=== PATIENT | male | born 1980 | race Two or more races ===

== ENCOUNTER 2016-09-14 14:01 | Emergency (ER) | payer OTHER ==
[2016-09-14 14:07] VITALS: BP 145/78; PULSE 65; TEMP 97.8; BMI 31.6
--- NOTE | 2016-09-14 15:27 | PDOC ---
History of Present Illness - General Chief Complaint: Laceration Stated Complaint: INJURY Time Seen by Provider: 09/14/16 14:15 - History of Present Illness Initial Comments: 09/14/16 14:17 Pt. is a LL hand dominant 36 y/o male who presents to fast track c/o cutting his left 4th finger. Pt. states he was trying to open a zip tie with a knife outside when his children threw a ball and it hit his hand. He slipped with the knife and cut his finger. He was able to control the bleeding and come to the ER. Denies weakness, numbness or tingling, or pain with bending his knuckle. States his tetanus is UTD and that he received it "a few months ago". Past History - Past Medical History Allergies/Adverse Reactions: Allergies Allergy/AdvReac Type Severity Reaction Status Date / Time No Known Allergies Allergy Verified 09/14/16 14:05 Home Medications: Ambulatory Orders NK [No Known Home Medication] 11/12/15 HTN: Yes - Surgical History Abdominal Surgery: Yes (gastric sleeve) - Immunization History Immunization Up to Date: Yes - Psycho/Social/Smoking Cessation Hx Anxiety: No Suicidal Ideation: No Smoking History: Never smoked Have you smoked in the past 12 months: No Information on smoking cessation initiated: No Hx Alcohol Use: No Drug/Substance Use Hx: No Review of Systems - Review of Systems Constitutional: No: Chills, Fever, Weakness Musculoskeletal: No: Joint Pain, Joint Swelling, Muscle Pain Integumentary: Yes: Other (laceration to L 4th proximal finger) Hematologic/Lymphatic: No: Easy Bleeding *Physical Exam - Vital Signs Last Vital Signs Temp Pulse Resp BP Pulse Ox 97.8 F 65 18 145/78 100 09/14/16 14:05 09/14/16 14:05 09/14/16 14:05 09/14/16 14:05 09/14/16 14:05 - Physical Exam General Appearance: Yes: Nourished, Appropriately Dressed. No: Apparent Distress Extremity: positive: Normal Capillary Refill, Normal Range of Motion (Strength 5 /5 with FROM in L 4th finger). negative: Normal Inspection (2.5cm laceration to the L 4th proximal finger) Integumentary: positive: Normal Color, Dry, Warm, Other (2.5cm laceration to the L 4th proximal finger) Neurologic: positive: email operations manager II-XII NML intact, Fully Oriented, Alert, Normal Mood/ Affect, Normal Response, Motor Strength 5/5 Procedures - Laceration/Wound Repair Left Proximal Finger 4th digit Wound Length: to 2.5 cm (2.5cm in length) Wound Explored: clean, no foreign body present Wound's Depth, Shape: superficial, linear Irrigated w/ Saline: Yes Betadine Prep: Yes Anesthesia: 1% Lidocaine Amount of Anesthetic (ccs): 2 Wound Repaired With: Sutures Suture Size/Type: 5:0, nylon Number of Sutures: 3 (simple interrupted) Layer Closure: No Sterile Dressing Applied: Yes Splint Applied: Yes Type of Splint Applied: finger splint Medical Decision Making - Medical Decision Making 09/14/16 15:29 The wound was thoroughly explored and irrigated with saline and betadine. 3 simple interrupted sutures were placed under 2ccs of 1% lidocaine. Pt. tolerated procedure well. Bleeding controlled at this time. Finger was placed in a splint to keep the stitches in place. There is also a small wound on his ventral 5th finger. This wound was also cleaned and a steristrip was placed over the wound. Tetanus UTD at this time. Pt. was given instructions on how to keep the wound clean and instructed to return in 1 week to have his stitches removed. Pt. understands all discharge instructions and all questions were answered at this time. *DC/Admit/Observation/Transfer Diagnosis at time of Disposition: Laceration of finger Qualifiers: Encounter type: initial encounter Qualified Code(s): S61.219A - Laceration without foreign body of unspecified finger without damage to nail, initial encounter - Discharge Dispostion Admit: No - Referrals Referrals: Aleshia West MD [Primary Care Provider] - - Patient Instructions Printed Discharge Instructions: DI for Laceration Repair Additional Instructions: You have stitches in your left 4th finger. Keep the area clean and dry. Wear the splint on your finger except for showering. While showering keep a glove over your hand. Wear a bandaid over the stitches when going out, at home let the wound air out. Return to the emergency department in 7 days to have your stitches removed. Do not play any sports until you have the stitches removed. Return to the ED if you have uncontrolled bleeding, or see signs of infection such as fevers, chills, redness around the site or foul smelling drainage.
== END 2016-09-14 15:29 | disposition home or self-care (01) ==
LOC: JERFT 14:01
PROC: 0HQGXZZ Repair Left Hand Skin, External Approach (ICD-10-PCS; principal; 2016-09-14)
PROC: 2W3KX1Z Immobilization of Left Finger using Splint (ICD-10-PCS; 2016-09-14)
DX: S61.215A Laceration without foreign body of left ring finger without damage to nail, initial encounter (principal); W26.0XXA Contact with knife, initial encounter; Y93.89 Activity, other specified; Y92.038 Other place in apartment as the place of occurrence of the external cause
CPT/HCPCS: 12001-25; 29130; 99281-25

== ENCOUNTER 2016-09-21 11:08 | Emergency (ER) | payer OTHER ==
[2016-09-21 11:15] VITALS: BP 134/71; PULSE 85; TEMP 98; BMI 31.6
--- NOTE | 2016-09-21 11:29 | PDOC ---
Suture Removal/Wound Check HPI - History of Present Illness Chief Complaint: Suture/Staple Removal(Here) Stated Complaint: STAPLE/SUTURE REMOVAL Time Seen by Provider: 09/21/16 11:21 History Source: Yes: Patient Treated at: [facility] Date of Last ED visit: 09/14/16 - Previous ED Treatment Type of procedure performed on last visit: Yes: Laceration Repair Past History - Past Medical History Allergies/Adverse Reactions: Allergies No Known Allergies Allergy (Verified 09/21/16 11:15) Home Medications: Ambulatory Orders NK [No Known Home Medication] 11/12/15 - Immunization History Immunizations Up to Date: Yes Tetanus Status: Less than 5 years - Social History Smoking Status: Never smoked Suture Removal/Wound Check PE - Physical Exam Laceration/Wound Check Symptoms: denies: Pain, Fever, Chills, Redness Current Severity Level: None Location of Laceration/Wound: left: Finger (well healign lac to dorsum of L 4th digit w/ 4 sutures intact) *Review of Systems - Review of Systems Constitutional: No: Chills, Fever Medical Decision Making - Medical Decision Making 09/21/16 11:26 36-year-old male, no significant history, here for suture removal. Patient status post suture repair to left fourth digit approximately one week ago. States wound healing well, no acute complaints at this time. Wound well healing on exam. 4 sutures removed with no complications. *DC/Admit/Observation/Transfer Diagnosis at time of Disposition: Visit for suture removal - Discharge Dispostion Disposition: HOME Condition at time of disposition: Good - Patient Instructions Printed Discharge Instructions: DI for Suture Removal
== END 2016-09-21 11:32 | disposition home or self-care (01) ==
LOC: JERFT 11:08
DX: Z48.02 Encounter for removal of sutures (principal)
CPT/HCPCS: 99281-25

== ENCOUNTER 2017-06-30 08:13 | Emergency (ER) | payer OTHER ==
[2017-06-30 08:38] VITALS: BP 149/86; PULSE 89; TEMP 98; BMI 36.8
[2017-06-30] MEDS ORDERED: KETOROLAC TROMETHAMINE 60 MG/2 ML VIAL IM ONE (09:15)
[2017-06-30] MEDS ORDERED: KETOROLAC TROMETHAMINE 60 MG/2 ML VIAL ONE (09:16)
--- NOTE | 2017-06-30 09:24 | PDOC ---
History of Present Illness - General Chief Complaint: Back Pain Stated Complaint: BACK PAIN Time Seen by Provider: 06/30/17 09:01 - History of Present Illness Initial Comments: 06/30/17 09:19 CHIEF COMPLAINT: low back pain HISTORY OF PRESENT ILLNESS: 37-year-old male with history of herniated disc presents to fast track with low back pain. Patient reports that he was showing atraumatic block during football practice yesterday and when he bent down he felt like he could not move back up without pain. Patient denies any loss of bowel or bladder function, denies any loss of sensation to lower extremities. PAST MEDICAL HISTORY: Denies past medical history FAMILY HISTORY: Denies SOCIAL HISTORY:Denies tobacco, alcohol, illicit drug use. SURGICAL HISTORY: Denies ALLERGIES: No known drug allergies REVIEW OF SYSTEMS As per HPI PHYSICAL EXAM General Appearance: Well-appearing, appropriately dressed. No apparent distress. HEENT: EOMI, PERRLA, normal ENT inspection, normal voice, TMs normal, pharynx normal. No conjunctival pallor. No photophobia, scleral icterus. Respiratory/Chest: Lungs CTAB. Cardiovascular: RRR. S1, S2. Gastrointestinal/Abdominal: Normal bowel sounds. Abdomen soft, non-distended. No tenderness or rebound tenderness. No organomegaly, pulsatile mass, guarding , hernia, hepatomegaly, splenomegaly. Musculoskeletal/Extremities: Normal inspection. FROM of all extremities, normal capillary refill. Pelvis Stable. No CVA tenderness. No tenderness to extremities, pedal edema, swelling, erythema or deformity. Integumentary: Appropriate color, dry, warm. No cyanosis, erythema, jaundice or rash Neurologic: mounter automatic II-XII intact. Fully oriented, alert. Appropriate mood/affect. Motor strength 5/5. No appreciable EOM palsy, facial droop or sensory deficit. Past History - Past Medical History Allergies/Adverse Reactions: Allergies Allergy/AdvReac Type Severity Reaction Status Date / Time No Known Allergies Allergy Verified 06/30/17 08:35 Home Medications: Ambulatory Orders Cyclobenzaprine HCl 10 mg PO HS PRN #7 tablet 06/30/17 Naproxen 375 mg PO BID #14 tablet 06/30/17 COPD: No HTN: Yes Other medical history: herniated disks - Surgical History Abdominal Surgery: Yes (gastric sleeve) - Immunization History Immunization Up to Date: Yes - Suicide/Smoking/Psychosocial Hx Smoking History: Never smoked Have you smoked in the past 12 months: No Hx Alcohol Use: No Drug/Substance Use Hx: No *Physical Exam - Vital Signs Last Vital Signs Temp Pulse Resp BP Pulse Ox 98 F 89 19 149/86 97 06/30/17 08:35 06/30/17 08:35 06/30/17 08:35 06/30/17 08:35 06/30/17 08:35 Medical Decision Making - Medical Decision Making 06/30/17 09:20 37-year-old male with history of herniated disc presents to fast track with low back pain. -60 mg Toradol Advised patient to take medication as prescribed and follow up with ortho if symptoms persist Advised patient of signs and symptoms for return to ED. Patient verbalized understanding and agrees to plan. *DC/Admit/Observation/Transfer Diagnosis at time of Disposition: Back pain - Discharge Dispostion Disposition: HOME Condition at time of disposition: Stable Admit: No - Prescriptions Prescriptions: Cyclobenzaprine HCl 10 mg PO HS PRN #7 tablet PRN Reason: Muscle Spasms Naproxen 375 mg PO BID #14 tablet - Referrals Referrals: Aleshia West MD [Primary Care Provider] - Donta Benitez MD [Staff Physician] - Sabine Dejesus MD [Staff Physician] - - Patient Instructions Printed Discharge Instructions: DI for Low Back Pain Additional Instructions: Please take medications as prescribed; do not drive, drink alcohol, operate machinery while taking cyclobenzaprine. Follow up with orthopedics if symptoms persist past one week. If you develop ANY loss of bowel or bladder function, loss of sensation to your legs, or are unable to walk, or have any new or worsening symptoms, please return to the ER. As discussed, please follow up with dermatology regarding your skin changes. If you develop any fever, chills, nausea, vomiting, or diarrhea, or the rash becomes painful, hot, red, or swollen, please return to the ER. - Post Discharge Activity
== END 2017-06-30 09:28 | disposition home or self-care (01) ==
LOC: JERFT 08:13
PROC: 3E0233Z Introduction of Anti-inflammatory into Muscle, Percutaneous Approach (ICD-10-PCS; principal; 2017-06-30)
DX: M54.5 Low back pain (principal)
CPT/HCPCS: 99281-25

== ENCOUNTER 2019-12-04 17:50 | Emergency (ER) | payer OTHER ==
[2019-12-04 18:07] VITALS: BP 152/91; PULSE 75; TEMP 98.1; BMI 52.6
[2019-12-04] MEDS ORDERED: KETOROLAC TROMETHAMINE 30 MG/1 ML VIAL IM ONE (18:27)
[2019-12-04] MEDS ORDERED: KETOROLAC TROMETHAMINE 30 MG/1 ML VIAL ONE (18:28)
--- NOTE | 2019-12-04 18:35 | PDOC ---
History of Present Illness - General Chief Complaint: Pain, Acute Stated Complaint: LEG PAIN Time Seen by Provider: 12/04/19 18:21 History Source: Patient Exam Limitations: No Limitations - History of Present Illness Initial Comments: 12/04/19 18:33 39-year-old male denies past medical history, had bariatric surgery 2014, presents complaining of pain to right knee x1 week worsening today while playing football. Patient states he felt a pulling sensation to the right knee, denies direct trauma to the knee, denies striking the ground or any other injury. Has been dealing with his knee pain with acetaminophen, rest and applying ice. However worsened the knee while playing football today. ROS: as above PE: GENERAL: well-appearing, NAD, obese HEAD: NCAT EYES: Pupils equal, round and reactive to light, sclera anicteric, conjunctiva clear ENT: pharynx: no erythema, no exudate, uvula midline NECK: supple CHEST: nontender RESP: clear, no w/r/r CARDIO: rrr, no m/g/r ABD: +BS, soft, nontender, non distended BACK: no midline spinal ttp, no CVAT EXTREMITIES: Normal range of motion, no edema NEUROLOGICAL: Normal speech, walking with slight limp, right knee no laxity, no swelling noted, no bony tenderness to palpation SKIN: Warm, Dry Is this a multiple visit Asthma Patient?: No Past History - Medical History Allergies/Adverse Reactions: Allergies Allergy/AdvReac Type Severity Reaction Status Date / Time No Known Allergies Allergy Verified 12/04/19 18:03 Home Medications: Ambulatory Orders NK [No Known Home Medication] 12/04/19 COPD: No HTN: Yes - Surgical History Abdominal Surgery: Yes (gastric sleeve) - Immunization History Immunization Up to Date: Yes - Psycho-Social/Smoking History Smoking History: Never smoked Have you smoked in the past 12 months: No - Substance Abuse Hx (Audit-C & DAST Scrn) How often the patient has a drink containing alcohol: Never Score: In Men: 4 or > Positive; In Women: 3 or > Positive: 0 Screen Result (Pos requires Nsg. Audit-10AR): Negative In the last yr the pt used illegal drug/Rx for NonMed reason: No Score: Yes response is considered Positive: 0 Screen Result (Positive result requires Nsg. DAST-10): Negative *Physical Exam - Vital Signs Last Vital Signs Temp Pulse Resp BP Pulse Ox 98.1 F 75 19 152/91 99 12/04/19 18:05 12/04/19 18:05 12/04/19 18:05 12/04/19 18:05 12/04/19 18:05 ED Treatment Course - RADIOLOGY Radiology Studies Ordered: Category Date Time Status KNEE 3 POS-RIGHT [RAD] Stat Radiology 12/04/19 18:27 Ordered - Medications Given in the ED: ED Medications Discontinued Medications Generic Name Dose Route Start Last Admin Trade Name Marylu PRN Reason Stop Dose Admin Ketorolac Tromethamine 30 mg 12/04/19 18:27 12/04/19 18:32 Toradol Injection - IM 12/04/19 18:28 30 mg ONCE ONE Administration Medical Decision Making - Medical Decision Making 12/04/19 19:08 39-year-old male denies past medical history, had bariatric surgery 2014, presents complaining of pain to right knee x1 week worsening today while playing football. Patient states he felt a pulling sensation to the right knee, denies direct trauma to the knee, denies striking the ground or any other injury. Has been dealing with his knee pain with acetaminophen, rest and applying ice. However worsened the knee while playing football today. R knee xray: No acute fracture on my wet read Toradol 30 mg IM x1 dose Patient has a knee immobilizer which he will use at home Will refer to an orthopedist Discharge - Discharge Information Problems reviewed: Yes Clinical Impression/Diagnosis: Right knee pain Qualifiers: Chronicity: acute Qualified Code(s): M25.561 - Pain in right knee Condition: Stable Disposition: HOME - Admission No - Follow up/Referral Referrals: Donta Benitez MD [Staff Physician] - Mani Burroughs DO [Staff Physician] - - Patient Discharge Instructions Additional Instructions: Alternate between ibuprofen 600 mg every 6 hours and acetaminophen 975 mg every 6 hours Rest, apply ice Wear knee immobilizer which you have in your home Return to ED if symptoms worsen - Post Discharge Activity
== END 2019-12-04 19:22 | disposition home or self-care (01) ==
LOC: JERFT 17:50
PROC: 3E0233Z Introduction of Anti-inflammatory into Muscle, Percutaneous Approach (ICD-10-PCS; principal; 2019-12-04)
DX: M25.561 Pain in right knee (principal)
CPT/HCPCS: 73562-TC-RT-FY; 99284-25

== ENCOUNTER 2020-02-03 17:52 | Emergency (ER) | payer OTHER ==
[2020-02-03 17:58] VITALS: BP 129/78; PULSE 107; TEMP 98.3; BMI 51.2
--- OUTSIDE RECORDS SUMMARY | 2020-02-03 18:11 | XMS ---
:1980 Author Organization [facility] Support Name Relationship Address Phone [address] [place] [address] SULAIMANSHAMA SANTIAGO BROTHER [address] [phone] [place] [id number] BESSIE HILAR[address]ER [address] [place] [address] [employer] [place] [address] [employer] Unavailable [facility] [place] [address] [place] [id number] [facility] [address] [place] [address] Re-disclosure Warning The records that you are about to access may contain information from federally- assisted alcohol or drug abuse programs. If such information is present, then the following federally mandated warning applies: This information has been disclosed to you from records protected by federal confidentiality rules (42 CFR part 2). The federal rules prohibit you from making any further disclosure of this information unless further disclosure is expressly permitted by the written consent of the person to whom it pertains or as otherwise permitted by 42 CFR part 2. A general authorization for the release of medical or other information is NOT sufficient for this purpose. The Federal rules restrict any use of the information to criminally investigate or prosecute any alcohol or drug abuse patient.The records that you are about to access may contain highly sensitive health information, the redisclosure of which is protected by Article 27-F of the [facility] Public Health law. If you continue you may haveaccess to information: Regarding HIV / AIDS; Provided by facilities licensed or operated by the [facility] Office of Mental Health; or Provided by the [facility] Office for People With Developmental Disabilities. If such information is present, then the following [facility] mandated warning applies: This information has been disclosed to you from confidential records which are protected by state law. State law prohibits you from making any further disclosure of this information without the specific written consent of the person to whom it pertains, or as otherwise permitted by law. Any unauthorized further disclosure in violation of state law may result in a fine or residential sentence or both. A general authorization for the release of medical or other information is NOT sufficient authorization for further disclosure. Insurance Providers Payer name Policy type Policy ID Covered Covered green party's Policy P iva / Coverage green party ID relationship to [employer] type [employer] [id number] SP [id number] HEALTHCARE HMO 1 SELF PAY SP INSURANCE O SEC[employer] [place] O DOA 05 [id number] 01 DOA [id number] INC 19 REGIN O 01 [employer] Results ID Date Data Source [id number] 11/11/2019 12:30:00 PM EDT [facility] Name Value Range Interpretation Code Description Data Coni rce(s) Supporting Document(s ) COV2 [facility] This lab was ordered by JEANETTE bneito nd reported by [facility] Demian. Procedure
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
[2020-02-03] MEDS ORDERED: IBUPROFEN 400 MG TABLET (FP) PO ONE ×2 (18:57)
== END 2020-02-03 19:23 | disposition home or self-care (01) ==
LOC: JER 17:52 → JERFT 17:52
DX: M25.561 Pain in right knee (principal)
CPT/HCPCS: 73562-TC-RT-FY; 99283-25

== ENCOUNTER 2021-03-07 17:16 | Emergency (ER) | payer OTHER ==
[2021-03-07 17:24] VITALS: BP 157/76; PULSE 105; TEMP 98; BMI 52.0
[2021-03-07] MEDS ORDERED: NAPROXEN 500 MG TABLET PO ONE (17:27)
[2021-03-07] MEDS ORDERED: NAPROXEN 500 MG TABLET ONE (17:43)
== END 2021-03-07 17:57 | disposition home or self-care (01) ==
LOC: FER 17:16
DX: M25.532 Pain in left wrist (principal)
CPT/HCPCS: 73110-TC-LT-FY; 99283-25

== ENCOUNTER 2021-12-31 06:33 | Emergency (ER) | payer OTHER ==
[2021-12-31] MEDS ORDERED: METHOCARBAMOL 500 MG TABLET PO ONE (06:36)
[2021-12-31] MEDS ORDERED: LIDOCAINE 5% TOPICAL PATCH TP ONE (06:36)
[2021-12-31] MEDS ORDERED: ACETAMINOPHEN 325 MG TABLET (FP) PO ONE (06:36)
[2021-12-31 06:41] VITALS: PULSE 82; TEMP 97.9; BMI 50.1
[2021-12-31] MEDS ORDERED: ACETAMINOPHEN 325 MG TABLET (FP) ONE (06:43)
[2021-12-31 07:31] VITALS: BP 152/104; RESP 20
[2021-12-31] MEDS ORDERED: LIDOCAINE PATCH REMOVAL MC SCH (22:00)
== END 2021-12-31 07:37 | disposition home or self-care (01) ==
LOC: FER 06:33
DX: M54.50 Low back pain, unspecified (principal)
CPT/HCPCS: 99283-25

== ENCOUNTER 2022-08-29 16:55 | Emergency (ER) | payer OTHER ==
[2022-08-29 17:25] VITALS: BP 162/97; PULSE 92; RESP 18; TEMP 98.6; BMI 51.4
[2022-08-29] MEDS ORDERED: KETOROLAC TROMETHAMINE 30 MG/1 ML VIAL IM ONE (18:00)
[2022-08-29] MEDS ORDERED: KETOROLAC TROMETHAMINE 30 MG/1 ML VIAL ONE (18:02)
== END 2022-08-29 19:55 | disposition home or self-care (01) ==
LOC: FER 16:55
PROC: 3E023GC Introduction of Other Therapeutic Substance into Muscle, Percutaneous Approach (ICD-10-PCS; principal; 2022-08-29)
DX: M25.561 Pain in right knee (principal)
CPT/HCPCS: 73564-TC-RT-FY; 99284-25

== ENCOUNTER 2023-11-23 21:42 | Emergency (ER) | payer OTHER ==
[2023-11-23 21:51] VITALS: BP 139/90; PULSE 78; RESP 18; TEMP 98.2; BMI 48.8
== END 2023-11-23 22:36 | disposition home or self-care (01) ==
LOC: FER 21:42
DX: K52.9 Noninfective gastroenteritis and colitis, unspecified (principal); R11.10 Vomiting, unspecified; A05.9 Bacterial foodborne intoxication, unspecified
CPT/HCPCS: 99283-25